=== PATIENT | male | born 2000 | race Caucasian/White ===

== ENCOUNTER 2022-05-06 00:34 | Observation (INO) ==
[2022-05-06 01:00] LABS: INR 1.11 (0.88-1.18)
[2022-05-06 01:17] LABS: High Sens Troponin Baseline 57 pg/mL (<20)
[2022-05-06 01:19] LABS: Hematocrit 43 % (42-52); Hemoglobin 13.4 g/dL (14.0-18.0); Mean Corpuscular HGB Conc 31 g/dL (31-36); Mean Corpuscular Hemoglobin 18 pg (27-31); Mean Corpuscular Volume 59 fL (80-94); Mean Platelet Volume 8.8 fL (7.4-10.4); Platelet Count 280 10^3/uL (150-450); Red Blood Count 7.39 10^6 /uL (4.18-5.48); Red Cell Distribution Width 16 % (10-15); White Blood Count 11.2 10^3/uL (3.5-10.8)
[2022-05-06 01:38] LABS: ALT 48 U/L (7-52); AST 38 U/L (13-39); Albumin 5.2 g/dL (3.2-5.2); Albumin/Globulin Ratio 1.9 (1-3); Alkaline Phosphatase 77 U/L (35-149); Anion Gap 9 mmol/L (2-11); Blood Urea Nitrogen 15 mg/dL (6-24); CO2 Carbon Dioxide 25 mmol/L (22-32); Chloride 103 mmol/L (101-111); Creatinine, Serum 1.05 mg/dL (0.67-1.17); Globulin 2.8 g/dL (2-4); Glucose 102 mg/dL (70-100); Potassium 3.6 mmol/L (3.5-5.0); Sodium 137 mmol/L (135-145); eGFR CKD-EPI 103.6 (>60)
[2022-05-06 01:58] LABS: ABS Eosinophils 0.1 10^3/ul (0-0.6); Eosinophil % 1.3 %; Lymphocyte % 35.8 %; Nucleated Red Blood Cells % 0.1
[2022-05-06 02:09] LABS: Microcytosis 3+
[2022-05-06 02:10] LABS: Anisocytosis 1+; Polychromasia 1+
[2022-05-06 02:21] LABS: High Sensitivity Troponin 1 Hr 61 pg/mL (<20)
[2022-05-06] MEDS ORDERED: Nitro 2% OINT (Nitroglycerin) 1 INCH/PAK TOPICAL ONE (07:41)
[2022-05-06 07:50] LABS: C Reactive Protein < 1.00 mg/L (<8.01)
[2022-05-06 08:52] LABS: Erythrocyte Sed Rate 1 mm/Hr (0-14)
[2022-05-06] MEDS ORDERED: Potassium Chlor 20 meq TAB.ER PO ONE (11:18)
[2022-05-06 12:21] LABS: Magnesium 1.7 mg/dL (1.9-2.7)
[2022-05-06 12:27] LABS: % Iron Saturation 22 % (15-55); Iron 95 ug/dL (50-212); Total Iron Binding Capacity 431 mcg/dL (250-450); Transferrin 308 mg/dL (203-362); Unsaturated Iron Binding 336 ug/dL
[2022-05-06] MEDS ORDERED: Magnesium Sulfate IV 3 GM in NS 0.9% 100 ml BAG 100 ML IVPB ONE (14:49)
[2022-05-07 06:46] LABS: CRP High Sensitivity 0.32 mg/L (<2.00); Calcium 9.8 mg/dL (8.6-10.3); Creatinine, Serum 0.96 mg/dL (0.67-1.17); Potassium 4.3 mmol/L (3.5-5.0); eGFR CKD-EPI 115.3 (>60)
[2022-05-07 06:49] LABS: CKMB ng/mL 1.4 ng/mL (0.6-6.3)
[2022-05-07 08:43] LABS: Magnesium 2.2 mg/dL (1.9-2.7)
[2022-05-07 11:37] VITALS: BP 134/82
== END 2022-05-07 12:30 | disposition home or self-care (01) ==
LOC: ED 00:34 → EDHOLD 00:34 → MEDTELE 20:19
PROVIDERS: ADMIT Internal Medicine; ATTEND Internal Medicine